=== PATIENT | male | born 1945 | race Caucasian/White ===

== ENCOUNTER 2021-11-02 08:37 | Outpatient (CLI) | payer MEDICARE, SELFPAY | END 2021-11-02 08:38 | disposition home or self-care (01) | LOC: ANHAUDIO 08:38 | PROVIDERS: PCP Internal Medicine; Referring Provider Otolaryngology; Visit Provider Otolaryngology | DX: H93.19 Tinnitus, unspecified ear (principal) | CPT/HCPCS: 92557; 92567 ==